=== PATIENT | male | born 1940 | race Caucasian/White ===

== ENCOUNTER → 2017-07-19 | Outpatient (CLI) | payer OTHER, MEDICARE ==
[~2017-07-19] MED LIST: ASPIRIN81 M2 PO; BAYER ASPIRIN325 M1 PO; FINASTERIDE5 M1 PO; FINASTERIDE5 MG PO; FLOMAX0.4 M1 PO; IRBESARTAN-HCT1 EAC1 PO; LANSOPRAZOLE15 MG PO; LANSOPRAZOLE30 M3 PO; LEVOTHYROXINE50 MCG PO; LORTAB 10-3251 EACH PO; OMEPRAZOLE20 M1 PO; SIMVASTATIN40 MG PO; VITAMIN D2000 UNIT PO; VITAMIN D32000 UNI1 PO
--- NOTE | ~2017-07-19 | CR63 ---
[facility] A Service of [facility] & [facility] RADIOLOGY TEXT RESULTS PATIENT: STONE SCHULTZ LOCATION: [facility] : 38 UNIT #: [id number] AGE: [address]: Robert Crews MD SEX: M ORDER DR: [id number] [facility] [address] [place], [place] [address] [id number] O MR#: [id number] Acc #: [id number] NAME: STONE SCHULTZ : 1940 SEX: M STUDY DATE/TIME: 07/19/2017 11:41 UNIT: [facility] ROOM: STUDY DESCRIPTION: CR Chest 2 View Attending Physician: Robert Crews M.D. Referring Physician: Robert Crews M.D. Ordering Physician: Robert Crews M.D. Primary Care Physician: Mitch Tomlin M.D. MEDICAL IMAGING REPORT This report is preliminary unless electronic signature is present EXAM Chest 2 views dated 07/19/2017. COMPARISON Chest 2 views dated 09/14/2015. HISTORY Preop evaluation. Shortness of air with exertion for 3 days. Left ocular surgery. FINDINGS 2 views of the chest were obtained. There is a stable left mid lung zone less than 1 cm nodule probably in the left lingula. It is stable in the last 2 years and is most suggestive of a benign entity like old granulomatous disease. Remaining lungs are well-aerated. No patchy dense consolidation, pleural effusion or pneumothorax. Heart mediastinum are unremarkable. Anterior endplate osteophytes are at multiple levels of the T-spine. Dictated by... Twila Ferguson M.D. THIS IS AN ELECTRONICALLY VERIFIED REPORT Twila Ferguson M.D. at 07/21/2017 9:14 PM CPR/rnr TD: 07/20/2017 02:57 JOB #: [id number] MEDICAL IMAGING REPORT Page 1 of 1 COPY
--- NOTE | ~2017-07-19 | EKG ---
PATIENT: STONE SCHULTZ UNIT #: [id number] Ventricular Rate: 68 BPM Atrial Rate: 68 BPM P-R Interval: 154 ms QRS Duration: 94 ms Q-T Interval: 382 ms QTC Calculation(Bezet): 406 ms P [place]: 17 degrees Calculated R [place]: -49 degrees Calculated T [place]: 46 degrees Diagnosis Line: Normal sinus rhythm Diagnosis Line: Left axis deviation Diagnosis Line: Abnormal ECG Diagnosis Line: When compared with ECG of 14-SEP-2015 10:27, Diagnosis Line: No significant change was found Diagnosis Line: Confirmed by LANI FLORES MD ([id number]) on 07/19/2017 Diagnosis Line: 5:30:37 PM INTERPRETING MD: SANDRA EASTON
[2017-07-19 11:39] LABS: HEMATOCRIT 39.5 % (38.0-50.0); HEMOGLOBIN 13.5 gm/dL (13.0-16.0); MEAN CELL VOLUME 88.2 FL (83-96); MEAN CORPUSCULAR HEMOGLOBIN 30.1 PG (28-34); MEAN CORPUSCULAR HGB CONC 34.1 g/dL (30-36); MEAN PLATELET VOLUME 9.3 FL (6.5-11.5); RED BLOOD COUNT 4.48 X10e (3.90-5.60); URINE APPEARANCE CLEAR; URINE BILIRUBIN NEG (NEG); URINE BLOOD NEG (NEG); URINE COLOR YELLOW; URINE GLUCOSE NEG (NEG); URINE KETONE NEG (NEG); URINE LEUKOCYTE ESTERASE NEG (NEG); URINE NITRATE NEG (NEG); URINE PH 7.5 (5-8); URINE PROTEIN NEG (NEG); URINE SPECIFIC GRAVITY 1.013 (1.003-1.035); WHITE BLOOD COUNT 7.4 X10e3 (4.0-10.5)
[2017-07-19 11:42] LABS: CULTURE INDICATED? NO
[2017-07-19 12:02] LABS: BUN/CREATININE RATIO 17.5; CALCIUM SERUM 8.8 mg/dL (8.4-10.2); CREATININE SERUM 0.8 mg/dL (0.6-1.4); GLOM FILT RATE Estimated 85.6 mL/min (>60); POTASSIUM 4.2 mmol/L (3.5-5.1)
== END | disposition home or self-care (01) ==
LOC: CAMB 10:26
PROVIDERS: Orthopaedic Surgery
DX: Z01.818 Encounter for other preprocedural examination (principal); S82.002A Unspecified fracture of left patella, initial encounter for closed fracture; K21.9 Gastro-esophageal reflux disease without esophagitis; I10 Essential (primary) hypertension; E78.5 Hyperlipidemia, unspecified
CPT/HCPCS: 36415; 71020; 80048; 81003; 85027; 93005

== ENCOUNTER 2017-07-22 08:10 | Observation (INO) | payer MEDICARE ==
[~2017-07-22] VITALS: Ht 172.7 cm; Wt 90.4 kg
--- NOTE | ~2017-07-22 | DS ---
Unit #: [id number] #: [id number] Patient: STONE SCHULTZ [id number] [address] [place], [place] [address] [id number] MR#: [id number] NAME: STONE SCHULTZ ROOM: 448 Age: 77 Sex: M Admission Date: 07/22/2017 : 1940 Discharge Date: 07/23/2017 Attending Physician: Robert Crews M.D. Primary Care Physician: Mitch Tomlin M.D. DISCHARGE SUMMARY REASON FOR ADMISSION Left knee pain. PROCEDURE Partial patellectomy. HOSPITAL COURSE The patient was admitted to [facility] with a history of left knee pain. The patient had undergone the above procedure. The patient is in stable condition today and plans to go home later today. Temperature 98.2, blood pressure 123/58, heart rate 71 and regular, respirations 18. His incision is healing well. Neurovascular exam is intact. 2+ pulses in his lower extremities. Plan will be to DC home later today under the care of home health. DISPOSITION Home with home health. PERTINENT LABS Hemoglobin is 12.0. MEDICATIONS Per Med Rec list. PLAN The patient will be discharged later today. The patient will be in a new knee immobilizer for 6-8 weeks. There will be no range of motion. He patient will e on aspirin 325 mg twice a day for 30 days. The patient will wear KARUNA hose during the day and off at night. We will see the patient in the office for followup on his scheduled appointment. Dictated by... Bran Scott P.A.-C- for Candice Sotelo/adrianna TD: 07/23/2017 08:49 JOB #: [id number] Unit #: [id number] #: [id number] Patient: STONE SCHULTZ DISCHARGE SUMMARY Page 1 of 1 X X DISCHARGE SUMMARY
--- NOTE | ~2017-07-22 | OR ---
Unit #: [id number] #: [id number] Patient: STONE SCHULTZ [id number] [address] [place], [place] [address] [id number] MR#: [id number] NAME: STONE SCHULTZ ROOM: [facility] Date of Procedure: 07/22/2017 Admission Date: 07/22/2017 Surgeon: Robert Crews M.D. : 1940 Attending Physician: Robert Crews M.D. Primary Care Physician: Mitch Tomlin M.D. OPERATIVE REPORT PREOPERATIVE DIAGNOSIS Displaced patella fracture from the left knee with previous left total knee. [employer] Carlos Alberto. PROCEDURE PERFORMED Partial patellectomy and reattachment of infrapatellar tendon. DESCRIPTION OF PROCEDURE The patient was brought to the operating room, given appropriate IV antibiotics. She was then given a general anesthetic. Tourniquet placed around the left thigh. The left leg was prepped and draped. Tourniquet was inflated to 250. The previous anterior skin incision was opened. The subcutaneous dissected away. We then split the infrapatellar tendon longitudinally and identified the inferior pole. This was shelled out and then the tendon was repaired end-to-end with the remaining proximal segment. Once this was done, the knee was irrigated and dried. It was irrigated with 1% plain Marcaine. It was then closed using 0 Ethibond, where we had reattached the infrapatellar tendon and the remaining extensor mechanism. Subcutaneous was closed with 0 and 2-0 Vicryl and sherron in the skin. Sterile dressing was applied and the knee immobilizer was positioned. events assistant, Tori Carcamo was present throughout the entire case. Dictated by... Candice Sotelo/anna TD: 07/22/2017 14:40 JOB #: [id number] Unit #: [id number] #: [id number] Patient: STONE SCHULTZ OPERATIVE REPORT Page 1 of 1 X Robert Crews MD X PROCEDURE OPERATIVE NOTE
[~2017-07-22 08:10] MED LIST changes: -BAYER ASPIRIN325 M1 PO; -LORTAB 10-3251 EACH PO
[2017-07-23 03:59] LABS: BASOPHIL# 0.1 X10e3 (0-0.3); BASOPHIL% 0.6 % (0-2.5); EOSINOPHIL# 0.8 X10e3 (0-0.7); EOSINOPHIL% 9.9 % (0.0-7.0); HEMATOCRIT 34.3 % (38.0-50.0); LYMPHOCYTE# 1.5 X10e3 (1.0-3.5); LYMPHOCYTE% 18.7 % (17.0-45.0); MEAN CELL VOLUME 88.6 FL (83-96); MEAN PLATELET VOLUME 8.9 FL (6.5-11.5); MONOCYTE# 0.7 X10e3 (0-1.0); NEUTROPHIL# 4.8 X10e3 (1.5-7.1); NEUTROPHIL% 61.8 % (40-75); PLATELET COUNT 153 X10e3 (140-420); RED BLOOD COUNT 3.87 X10e (3.90-5.60); RED CELL DISTRIBUTION WIDTH 12.9 % (11.0-15.5); WHITE BLOOD COUNT 7.9 X10e3 (4.0-10.5)
[2017-07-23 04:00] LABS: DIFF IND NO
[2017-07-23] MEDS ORDERED: LORTAB 10-3251 EACH PO (10:15)
[2017-07-23] MEDS ORDERED: BAYER ASPIRIN325 M1 PO (10:15)
== END 2017-07-23 12:09 | disposition home or self-care (01) ==
LOC: CSUR 08:10 → CPACUOF 09:08 → C4B 10:10 → CPACUOF 10:10 → CSUR 10:10 → CPACUOF 10:10 → CSUR 10:30 → CPACUOF 13:13 → C4B 13:13
PROVIDERS: Orthopaedic Surgery
DX: S82.002D Unspecified fracture of left patella, subsequent encounter for closed fracture with routine healing (principal); I10 Essential (primary) hypertension; E03.9 Hypothyroidism, unspecified; N40.0 Benign prostatic hyperplasia without lower urinary tract symptoms; K21.9 Gastro-esophageal reflux disease without esophagitis; M17.9 Osteoarthritis of knee, unspecified; E78.5 Hyperlipidemia, unspecified; Z79.899 Other long term (current) drug therapy; Z96.653 Presence of artificial knee joint, bilateral; Z98.890 Other specified postprocedural states; W01.0XXD Fall on same level from slipping, tripping and stumbling without subsequent striking against object, subsequent encounter
CPT/HCPCS: 85025; 94760; 96374; 96375; 96376; 97116; 97161; 97165; 97530; 97535; G0378; G8978-GP; G8979-GP; G8980-GP; G8987-GO; G8988-GO; G8989-GO; J0690; J1170; J2250; J2405; J2795; J3010